=== PATIENT | male | born 1950 | race Caucasian/White ===

== ENCOUNTER 2022-01-27 09:00 | Day surgery (SDC) | payer MEDICARE, OTHER ==
[2022-01-25 11:31] VITALS: BMI 35.9
--- NOTE | 2022-01-27 06:17 | P.GSHP ---
History of Present Illness H&P Date: 01/27/22 CHIEF COMPLAINT: Colon screen HISTORY OF PRESENT ILLNESS: The patient is a 71-year-old male who presents for colon screen. Lower endoscopy was offered for further evaluation and management. PAST MEDICAL HISTORY: Please see list. PAST SURGICAL HISTORY: Please see list. MEDICATIONS: Please see list. ALLERGIES: Please see list. SOCIAL HISTORY: No illicit drug use FAMILY HISTORY: No reports of Crohn disease or ulcerative colitis. REVIEW OF ORGAN SYSTEMS: CONSTITUTIONAL: No reports of fevers or chills. PHYSICAL EXAM: VITAL SIGNS: Stable GENERAL: Well-developed pleasant in no acute distress. HEENT: No scleral icterus. Extraocular movements grossly intact. Moist buccal mucosa. NECK: Supple without lymphadenopathy. CHEST: Unlabored respirations. Equal bilateral excursions. CARDIOVASCULAR: Regular rate and rhythm. Distal 2+ pulses. ABDOMEN: Soft, nontender, nondistended. MUSCULOSKELETAL: No clubbing, cyanosis, or edema. ASSESSMENT: 1. Colon screen. PLAN: 1. Recommend proceeding with a lower endoscopy Past Medical History Past Medical History: GERD/Reflux, Hyperlipidemia, Hypertension, Prostate Disorder, Rheumatoid Arthritis (RA), Sleep Apnea/CPAP/BIPAP Additional Past Medical History / Comment(s): USES C PAP MACHINE. RA UNDER CONTROL History of Any Multi-Drug Resistant Organisms: None Reported Past Surgical History: Appendectomy, Heart Catheterization, Hernia Repair, Orthopedic Surgery Additional Past Surgical History / Comment(s): UMBILICAL HERNIA, LEFT KNEE SCOPE, RT WRIST PLATE, COLONOSCOPY, RT THIGH BX Past Anesthesia/Blood Transfusion Reactions: No Reported Reaction Smoking Status: Never smoker - Past Family History Mother Family Medical History: Cancer Additional Family Medical History / Comment(s): KIDNEY Medications and Allergies Home Medications Medication Instructions Recorded Confirmed Type Magnesium Oxide [Mag-Ox] 250 mg PO HS 10/01/14 01/25/22 History Meloxicam 15 mg PO DAILY 10/01/14 01/25/22 History Omeprazole [PriLOSEC] 20 mg PO QA 10/01/14 01/25/22 History hydroCHLOROthiazide 25 mg PO DAILY 10/01/14 01/25/22 History DULoxetine HCL [Cymbalta] 30 mg PO DAILY 01/25/22 01/25/22 History Irbesartan [Avapro] 150 mg PO DAILY 01/25/22 01/25/22 History Rosuvastatin [Crestor] 10 mg PO HS 01/25/22 01/25/22 History Tamsulosin [Flomax] 0.8 mg PO HS 01/25/22 01/25/22 History Allergies Allergy/AdvReac Type Severity Reaction Status Date / Time No Known Allergies Allergy Verified 01/25/22 11:22
[2022-01-27] MEDS ORDERED: LIDOCAINE 1% (10MG/ML) FOR IV START INTRADERMA PRN (09:19)
[2022-01-27] MEDS ORDERED: LACTATED RINGERS 1,000 ML IV SCH (09:19)
[2022-01-27 09:25] VITALS: TEMP 98
[2022-01-27] MEDS ORDERED: LACTATED RINGERS 1,000 ML IV ONE (09:27)
[2022-01-27] MEDS ORDERED: PROPOFOL 10 MG/ML 20 ML VIAL IV ONE (10:45)
[2022-01-27] MEDS ORDERED: LIDOCAINE 2% INJ 20 MG/ML (2 ML VIAL) ONE (10:45)
--- NOTE | 2022-01-27 11:15 | P.PCN ---
Date of Procedure: 01/27/22 Description of Procedure: PREOPERATIVE DIAGNOSIS: Colonoscopy screening POSTOPERATIVE DIAGNOSIS: Tubular adenoma hepatic flexure Tubular adenoma ascending colon Sigmoid diverticulosis OPERATION: Colonoscopy to the ileocecal valve and appendiceal orifice, cecum Colonoscopy with cold forceps biopsy SURGEON: Merary Haywood MD. ANESTHESIA: MAC. INDICATIONS: The patient is an 71-year-old male who presents for colonoscopy screening. Last colonoscopy 10 years. Benefits and risks were described and informed consent was obtained. DESCRIPTION OF PROCEDURE: The patient had undergone Sutab prep. The patient had been brought into the operating room and laid in the left lateral decubitus position. After adequate intravenous sedation, the rectum was examined with 2% lidocaine jelly. The prostate was unremarkable. No external hemorrhoids were encountered. The rectal tone was within normal limits. No lesions were palpated in the rectal vault. An Olympus colonoscope was advanced until the cecum, ileocecal valve and appendiceal orifice were clearly viewed. The prep was good. Sigmoid diverticulo sis was encountered. Colonic polyps were found and removed. No evidence of focal colitis was found. Retroflexion of the scope demonstrated grade 2 internal hemorrhoids without active bleeding or inflammation. The colon was desufflated. The patient had tolerated the procedure well. Withdrawal time was over 6 minutes. FINDINGS: Aronchick preparation quality scale 2 (1-5) Internal hemorrhoids, grade 2 with recent inflammation and bleeding No external hemorrhoids No arteriovenous malformations. Sigmoid diverticulosis Removal of 3 polyps: - Cold forceps biopsy ascending colon, 4 mm polyp. - Cold forceps biopsy hepatic flexure 2, 4 to 5 mm polyp. No focal colitis. RECOMMENDATIONS: Repeat colonoscopy in 3 years, 2024 Plan - Discharge Summary Discharge Rx Participant: No New Discharge Prescriptions: Continue Omeprazole [PriLOSEC] 20 mg PO QAM Meloxicam 15 mg PO DAILY Magnesium Oxide [Mag-Ox] 250 mg PO HS hydroCHLOROthiazide 25 mg PO DAILY DULoxetine HCL [Cymbalta] 30 mg PO DAILY Tamsulosin [Flomax] 0.8 mg PO HS Rosuvastatin [Crestor] 10 mg PO HS Irbesartan [Avapro] 150 mg PO DAILY Discharge Medication List Magnesium Oxide [Mag-Ox] 250 mg PO HS 10/01/14 [History] Meloxicam 15 mg PO DAILY 10/01/14 [History] Omeprazole [PriLOSEC] 20 mg PO QAM 10/01/14 [History] hydroCHLOROthiazide 25 mg PO DAILY 10/01/14 [History] DULoxetine HCL [Cymbalta] 30 mg PO DAILY 01/25/22 [History] Irbesartan [Avapro] 150 mg PO DAILY 01/25/22 [History] Rosuvastatin [Crestor] 10 mg PO HS 01/25/22 [History] Tamsulosin [Flomax] 0.8 mg PO HS 01/25/22 [History] Follow up Appointment(s)/Referral(s): Merary Haywood MD [STAFF PHYSICIAN] - As Needed Patient Instructions/Handouts: Diverticulosis (ED), Colorectal Polyps (GEN), Diverticulosis Diet (GEN), Colonoscopy (GEN) Activity/Diet/Wound Care/Special Instructions: Repeat colonoscopy in 3 years, 2024 Discharge Disposition: HOME SELF-CARE
[2022-01-27 11:25] VITALS: BP 153/81; PULSE 58; RESP 15
== END 2022-01-27 12:00 | disposition home or self-care (01) ==
LOC: ORWHC2ENDO 09:00
PROVIDERS: ATTEND Surgery Plastic and Reconstructive Surgery
DX: D12.3 Benign neoplasm of transverse colon (principal); K64.1 Second degree hemorrhoids; K57.30 Diverticulosis of large intestine without perforation or abscess without bleeding; K21.9 Gastro-esophageal reflux disease without esophagitis; I10 Essential (primary) hypertension; M06.9 Rheumatoid arthritis, unspecified; G47.33 Obstructive sleep apnea (adult) (pediatric); N42.9 Disorder of prostate, unspecified; Z90.49 Acquired absence of other specified parts of digestive tract; Z80.9 Family history of malignant neoplasm, unspecified; Z79.899 Other long term (current) drug therapy
CPT/HCPCS: 88305; 45380; J2704; J2001